=== PATIENT | female | born 1940 | race Caucasian/White ===

== ENCOUNTER 2017-03-11 13:16 | Emergency (ER) | payer OTHER, BC ==
[~2017-03-11] VITALS: Ht 147.3 cm; Wt 73.1 kg
[~2017-03-11 13:16] MED LIST: ATENOLOL25 M1 PO; CLONAZEPAM1 M2 PO; DILANTIN PO; DILANTIN100 M1 PO; ESIDRIX PO; IMDUR120 MG PO; ISOSORBIDE DINIT5 MG PO; LYRICA150 MG PO; PROZAC20 M1 PO; VASOTEC2.5 M1 PO; ZANAFLEX CAPSULE2 MG PO
[2017-03-11 13:32] VITALS: BP 114/67
--- NOTE | 2017-03-11 14:20 | NUR ---
PT AMBULATED TO ER BED #8.
--- NOTE | 2017-03-11 14:29 | NUR ---
76/F PRESENT TO ER C/O RIGHT SIDED HEADACHE WITH MILD NAUSEA X LAST NIGHT DENIES DIZZINESS AT THIS TIME. PAIN 9/10 ACHING RADIATING TO WHOLE HEAD. 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 AAO x4, PERRLA, BREATHING EVEN AND UNLABORED. ERMD NOTIFIED OF PATIENT STATUS.
--- NOTE | 2017-03-11 14:43 | NUR ---
Patient being evaluated by physician at bedside.
[2017-03-11] MEDS ORDERED: METOCLOPRAMIDE 10 MG TAB PO ONE (14:45)
[2017-03-11] MEDS ORDERED: ONDANSETRON 4 MG ODT PO ONE (14:45)
[2017-03-11] MEDS ORDERED: IBUPROFEN 800 MG TAB PO ONE (14:45)
[2017-03-11] MEDS ORDERED: KETOROLAC 60 MG/2 ML VIAL IM ONE (15:20)
--- NOTE | 2017-03-11 15:59 | NUR ---
Patient discharged with v/s stable. Written and verbal after care instructions given and explained. Patient alert, oriented and verbalized understanding of instructions. Ambulatory with steady gait. All questions addressed prior to discharge. ID band removed. Patient advised to follow up with PMD. Rx of reglan 10mg tablet given. Patient educated on indication of medication including possible reaction and side effects. Opportunity to ask questions provided and answered.
[2017-03-11 16:00] VITALS: BP 118/68
== END 2017-03-11 15:59 | disposition home or self-care (01) ==
LOC: MED 13:16
DX: G43.909 Migraine, unspecified, not intractable, without status migrainosus (principal); I25.2 Old myocardial infarction; Z86.73 Personal history of transient ischemic attack (TIA), and cerebral infarction without residual deficits; I10 Essential (primary) hypertension; Z91.018 Allergy to other foods
CPT/HCPCS: 81001; 93005; 96372; 99285; J1885; J8597; S0119

== ENCOUNTER 2018-06-06 11:12 | Emergency (ER) | payer OTHER, BC ==
[~2018-06-06] VITALS: Ht 149.9 cm; Wt 59.0 kg
[~2018-06-06 11:12] MED LIST changes: -ATENOLOL25 M1 PO; -CLONAZEPAM1 M2 PO; -DILANTIN PO; -DILANTIN100 M1 PO; -ESIDRIX PO; -IMDUR120 MG PO; +ISOS120T PO; -ISOSORBIDE DINIT5 MG PO; -LYRICA150 MG PO; +PHEN100C4 PO; -PROZAC20 M1 PO; -VASOTEC2.5 M1 PO; -ZANAFLEX CAPSULE2 MG PO
--- NOTE | 2018-06-06 11:28 | NUR ---
PT AMBULATES TO BED 7
[2018-06-06 11:32] VITALS: BP 110/66
--- NOTE | 2018-06-06 11:42 | NUR ---
C/O LEFT ARM PAIN X YESTERDAY HIT ARM AGAINST WALKER--PT STATES IS CONCERNED OF INJURY 2 2YR OLD FX WITH HARDWARE REPAIR---+2 RADIAL PULSE <3 SEC CAP REFILL NO DISCOLORATION OR SWELLING NOTED . DENIES N/V/D; SKIN IS PINK/WARM/DRY; AAOX4 ; LUNGS CLEAR BL; HR EVEN AND REGULAR; PT DENIES ANY FEVER, CP, SOB, OR COUGH AT THIS TIME; PATIENT STATES PAIN OF 8/10 AT THIS TIME; VSS; PATIENT POSITIONED FOR COMFORT; HOB ELEVATED; BEDRAILS UP X2; BED DOWN. ER MD MADE AWARE OF PT STATUS.
--- NOTE | 2018-06-06 11:52 | NUR ---
XRAY AT BEDSIDE
[2018-06-06] MEDS ORDERED: KETOROLAC 30 MG/ML VIAL IM ONE (12:15)
[2018-06-06] MEDS ORDERED: MORPHINE SULFATE 2 MG/ML SYR IM ONE (12:15)
[2018-06-06 14:39] VITALS: BP 115/65
--- NOTE | 2018-06-06 14:41 | NUR ---
Patient discharged with v/s stable. Written and verbal after care instructions given and explained. Patient alert, oriented and verbalized understanding of instructions. Ambulatory with steady gait. All questions addressed prior to discharge. ID band removed. Patient advised to follow up with PMD. Rx of TRAMADOL given. Patient educated on indication of medication including possible reaction and side effects. Opportunity to ask questions provided and answered. PT WAITING FOR RIDER AT THIS MOMENT.
--- NOTE | 2018-06-06 15:00 | NUR ---
PT'S RIDER IS HERE. PT LEFT WITH RIDER ( JUAN ANTONIO) IN STABLE STAUS.
== END 2018-06-06 14:41 | disposition home or self-care (01) ==
LOC: MED 11:12
DX: S52.125A Nondisplaced fracture of head of left radius, initial encounter for closed fracture (principal); I10 Essential (primary) hypertension; Z86.73 Personal history of transient ischemic attack (TIA), and cerebral infarction without residual deficits; Z88.8 Allergy status to other drugs, medicaments and biological substances; W18.39XA Other fall on same level, initial encounter; Y93.89 Activity, other specified; Y92.89 Other specified places as the place of occurrence of the external cause; Y99.8 Other external cause status
CPT/HCPCS: 73060; 73090; 73110; 96372; 99284; J1885; J2270; Q0092

== ENCOUNTER 2018-07-18 10:31 | Inpatient (IN) | payer OTHER, BC ==
[~2018-07-18] VITALS: Ht 147.3 cm; Wt 71.7 kg
[2018-07-18 10:36] VITALS: BP 172/89
[2018-07-18] MEDS ORDERED: NACL 0.9% 500 ML IV SCH (10:43)
[2018-07-18] MEDS ORDERED: ONDANSETRON 4 MG/2 ML VIAL IVP ONE (10:45)
--- NOTE | 2018-07-18 10:45 | NUR ---
PT. CAME INTO THE ED DUE TO N/V/D X 5 DAYS. PT. STATES I HAVE BEEN HAVING VOMITING AND HAVING DIARRHEA FOR 5 DAYS AND I FEEL WEAK SO I DECIDED TO COME IN". 03/12 ABD PAIN THAT IS DULL NON RADIATING IN EPIGASTRIC AREA. PT. DENIES ANY BLOOD OR DARK COLOR STOOL, DENIES ANY BLOOD IN EMESIS. DENIES FEVER AND CHILLS. PT. AWAKE AND ALERT, STEADY GAIT UPON AMBULATION. ABD SOFT AND ROUND AND AND NON TENDER UPON PALPATION. ER MD MADE AWARE. SAFETY PRECAUTIONS IMPLEMENTED. WILL CONTINUE TO MONITOR. VSS.
--- NOTE | 2018-07-18 11:17 | NUR ---
PT UNABLE TO PROVIDE URINE SAMPLE AT THIS TIME. ER NOTIFIED. WILL CONTINUE TO MONITOR.
--- NOTE | 2018-07-18 11:20 | NUR ---
XRAY AT THE BEDSIDE.
[2018-07-18 11:22] LABS: BASOPHILS % (AUTO) 0.3 % (0.0-2.0); EOSINOPHILS % (AUTO) 0.1 % (0.0-4.0); HEMATOCRIT 38.7 % (36-48); HEMOGLOBIN 12.9 g/dL (12.0-16.0); LYMPHOCYTES # (AUTO) 1.1 K/uL (2.5-16.5); LYMPHOCYTES % (AUTO) 13.5 % (20.5-51.1); MEAN CORPUSCULAR HEMOGLOBIN 31 pg (27-31); MEAN CORPUSCULAR HGB CONC 33 g/dL (33-37); MEAN CORPUSCULAR VOLUME 91.4 fL (80-94); MONOCYTES # (AUTO) 0.6 K/uL (0.8-1.0); MONOCYTES % (AUTO) 7.5 % (1.7-9.3); NEUTROPHILS # (AUTO) 6.5 K/uL (1.8-7.7); NEUTROPHILS % (AUTO) 78.6 % (42.2-75.2); PLATELET COUNT (AUTO) 268 K/uL (140-450); RED BLOOD CELL COUNT(AUTO) 4.23 MIL/uL (4.20-5.40); RED CELL DISTRIBUTION WIDTH 12.9 % (11.6-13.7); WHITE BLOOD COUNT (AUTO) 8.3 K/uL (4.8-10.8)
[2018-07-18 11:43] LABS: PROTHROMBIN TIME 11.7 secs (10.8-13.4)
[2018-07-18 11:55] LABS: ANION GAP 20.5 (8-16); CARBON DIOXIDE 19.8 mmol/L (21-32); CHLORIDE 103 mmol/L (98-107); GLUCOSE 87 mg/dL (74-106); POTASSIUM 3.3 mmol/L (3.5-5.1); SODIUM SERUM 140 mmol/L (136-145)
[2018-07-18 11:56] LABS: UREA NITROGEN, BLOOD 18 mg/dL (7-18)
--- NOTE | 2018-07-18 12:14 | NUR ---
PT. RESTING COMFORTABLY IN BED, RR EVEN AND UNLABORED. VSS. WILL CONTINUE TO MONITOR.
[2018-07-18] MEDS ORDERED: ASPIRIN 81 MG TAB.CHEW PO ONE (12:15)
[2018-07-18] MEDS ORDERED: ONDANSETRON 4 MG/2 ML VIAL IM/IVP PRN (12:25)
[2018-07-18] MEDS ORDERED: DOCUSATE SODIUM 100 MG GELCAP PO PRN (12:25)
[2018-07-18] MEDS ORDERED: ZOLPIDEM 5 MG TAB PO PRN (12:25)
[2018-07-18] MEDS ORDERED: MORPHINE SULFATE 2 MG/ML SYR IVP PRN (12:25)
[2018-07-18] MEDS ORDERED: ACETAMINOPHEN 325 MG TAB PO PRN (12:25)
[2018-07-18] MEDS ORDERED: LORazepam 2 MG/ML VIAL IM/IVP PRN (12:25)
[2018-07-18] MEDS ORDERED: KETOROLAC 30 MG/ML VIAL IVP ONE (12:30)
[2018-07-18 12:40] LABS: ALBUMIN 3.6 g/dL (3.4-5.0); ASPARTATE AMINOTRANSFERASE 11 U/L (15-37); TOTAL BILIRUBIN 0.7 mg/dL (0.0-1.0)
[2018-07-18 13:10] VITALS: BP 176/71
--- NOTE | 2018-07-18 13:10 | NUR ---
Patient will be admitted to care of DR. REED . Admited to TELE . Will go to room 107B. Belongings list completed. Report to ANGEL KIRBY AND ANGEL FELIPE .
--- NOTE | 2018-07-18 13:10 | NUR ---
PATIENT ARRIVED ON MST UNIT FROM ER. ABLE TO AMBULATE WITH ASSISTANCE FROM ER BED TO MST BED. NO DISTRESS NOTED. DENIES ANY PAIN AT THIS TIME. AAOX4, CALM, COOPERATIVE, SKIN COLOR APPROPRIATE TO ETHNICITY, WARM TO TOUCH. SKIN INTACT. RESPIRATIONS EVEN, UNLABORED, ON ROOM AIR. IV SITE INTACT, PATENT. ABDOMEN SOFT, NON-DISTENDED. ORIENTED PATIENT TO ROOM AND CALL LIGHT WITHIN REACH. SAFETY MEASURES IN PLACE, FALL PREVENTIONS IN PLACE. WILL CONTINUE TO MONITOR.
[2018-07-18 13:19] LABS: MAGNESIUM 1.6 mg/dL (1.8-2.4); PHOSPHORUS 2.4 mg/dL (2.5-4.9); THYROID STIMULATING HORMONE 0.06 uIU/mL (0.34-3.74)
[2018-07-18 13:26] LABS: APPEARANCE,URINE SLIGHTLY HAZY (CLEAR); BILIRUBIN,URINE 2+ (NEGATIVE); BLOOD, URINE 0 (NEGATIVE); COLOR,URINE YELLOW (YELLOW); UGLUCOSE 0 (NEGATIVE)
[2018-07-18 13:27] LABS: LEUKOCYTE ESTERASE ,URINE NEGATIVE (NEGATIVE); NITRITE, URINE NEGATIVE (NEGATIVE)
[2018-07-18 13:28] LABS: RBC,URINE NONE SEEN /HPF (0-5)
[2018-07-18] MEDS ORDERED: VAS10 PO (13:51)
[2018-07-18] MEDS ORDERED: [UNRECOGNIZED DRUG - CODE] PO (13:51)
[2018-07-18] MEDS ORDERED: HYDR25TA32 PO (13:51)
[2018-07-18] MEDS ORDERED: ATEN25TA7 PO (13:51)
[2018-07-18] MEDS ORDERED: SERT50TA PO (13:51)
[2018-07-18] MEDS ORDERED: NITROGLYCERIN 0.4 MG TAB SL PRN (13:55)
[2018-07-18] MEDS ORDERED: HYDROCHLOROTHIAZIDE 25 MG TAB PO SCH (14:00)
[2018-07-18] MEDS ORDERED: ENALAPRIL 10 MG TAB PO SCH (14:00)
[2018-07-18] MEDS ORDERED: SERTRALINE 50 MG TAB PO SCH (14:00)
[2018-07-18] MEDS ORDERED: MAG SULF 2000 MG/WATER PREMIX 50 ML IV ONE (14:15)
[2018-07-18] MEDS: DEXT 5% /NACL 0.9% 1,000 ML IV SCH (15:05)
[2018-07-18] MEDS: MAGNESIUM SULFATE 1GM in DEXTROSE 5% 100 ML PREMIX IV SCH ×2 (15:07→17:00)
--- NOTE | 2018-07-18 15:30 | NUR ---
PATIENT SITTING IN BED COMFORTABLY. NO DISTRESS NOTED. DENIES ANY PAIN. SCHEDULED MEDICATIONS DUE GIVEN. WILL CONTINUE TO MONITOR.
[2018-07-18 16:00] VITALS: BP 141/67
[2018-07-18] MEDS: SODIUM PHOS / POTASSIUM PHOS 1 PKT PDR PO SCH (17:00)
[2018-07-18] MEDS: HYDROcodone/APAP 5/325 MG 1 TAB TAB PO PRN ×2 (17:01→23:26)
--- NOTE | 2018-07-18 17:03 | NUR ---
PATIENT LYING DOWN IN BED WITH COMPLAINS OF GENERALIZED PAIN, NORCO GIVEN PER ORDERS. OTHER SCHEDULED MEDICATIONS DUE GIVEN. SAFETY MEASURES IN PLACE, CALL LIGHT WITHIN REACH. WILL CONTINUE TO MONITOR.
[2018-07-18] MEDS ORDERED: POTASSIUM CHLORIDE 40 MEQ, LIDOCAINE MPF 1% - 5 mL VIAL 25 MG in NACL 0.9% 250 ML IV SCH (18:00)
--- NOTE | 2018-07-18 19:25 | NUR ---
GAVE REPORT TO WATER REGULATOR AND VALVE REPAIRER NURSE FOR CONTINUITY OF CARE. PATIENT IN STABLE CONDITION.
--- NOTE | 2018-07-18 19:26 | NUR ---
RECEIVED BEDSIDE REPORT FROM DAY SHIFT NURSE MIRTA RN, PT STABLE, NO DISTRESS NOTED, IV TO R AC 22G PATENT, INTACT, INFUSING POTASSIUM AT THIS MOMENT, PT TOLERATED WELL, INFUSING WELL, PT ON ROOM AIR, NO SOB, DENIES ANY PAIN AT THIS MOMENT, INITIAL ASSESSMENT DONE, ALL SAFETY PRECAUTION MET, CALL LIGHT WITHIN REACH, WILL CONTINUE TO MONITOR.
[2018-07-18 20:00] VITALS: BP 145/65
[2018-07-18] MEDS: ATENOLOL 25 MG TAB PO SCH (21:22)
[2018-07-18] MEDS: ATORVASTATIN 20 MG TAB PO SCH (21:22)
--- NOTE | 2018-07-18 21:26 | NUR ---
DUE MEDICATION ADMINISTERED PT TOLERATED WELL, NO DISTRESS NOTED, CALL LIGHT WITHIN REACH, WILL CONTINUE TO MONITOR.
[2018-07-18] MEDS ORDERED: INFLUENZA VIRUS VACCINE QUAD 0.5 ML SYR IMVAC PRN (22:30)
[2018-07-18 23:26] VITALS: BP 158/69
--- NOTE | 2018-07-18 23:26 | NUR ---
CHECKED ON PT, PT STATED HAVING HEADACHE 6/10, PAIN MEDICATION NORCO ADMINISTERED, PT TOLERATED WELL, NO DISTRESS NOTED, V/S TAKEN, CALL LIGHT WITHIN REACH, WILL CONTINUE TO MONITOR.
[2018-07-19] MEDS: DEXT 5% /NACL 0.9% 1,000 ML IV SCH (02:42)
[2018-07-19 03:44] VITALS: BP 157/61
[2018-07-19] MEDS: HYDROcodone/APAP 5/325 MG 1 TAB TAB PO PRN ×2 (03:44→17:15)
--- NOTE | 2018-07-19 03:44 | NUR ---
PT AMBULATED TO BATHROOM AND BACK TO BED, TOLERATED WELL, PT C/O HEADACHE 03/12, PAIN MEDICATION ORDERED GIVEN, PT TOLERATED WELL, NO DISTRESS NOTED, CALL LIGHT WITHIN REACH, WILL CONTINUE TO MONITOR.
[2018-07-19 03:52] LABS: ANION GAP 9.1 (8-16); CARBON DIOXIDE 23.4 mmol/L (21-32); CHLORIDE 109 mmol/L (98-107); CREATININE 0.9 mg/dL (0.6-1.3); GLUCOSE 120 mg/dL (74-106); POTASSIUM 3.5 mmol/L (3.5-5.1); SODIUM SERUM 138 mmol/L (136-145); UREA NITROGEN, BLOOD 17 mg/dL (7-18)
[2018-07-19 03:56] LABS: MAGNESIUM 2.1 mg/dL (1.8-2.4); PHOSPHORUS 2.3 mg/dL (2.5-4.9)
[2018-07-19 03:59] LABS: CHOL/HDL RATIO 3.3 (1-4.5)
[2018-07-19 06:11] LABS: HEMATOCRIT 37.3 % (36-48); HEMOGLOBIN 12.2 g/dL (12.0-16.0); MEAN CORPUSCULAR HEMOGLOBIN 30 pg (27-31); MEAN CORPUSCULAR HGB CONC 33 g/dL (33-37); MEAN CORPUSCULAR VOLUME 92.4 fL (80-94); RED BLOOD CELL COUNT(AUTO) 4.04 MIL/uL (4.20-5.40); RED CELL DISTRIBUTION WIDTH 12.3 % (11.6-13.7); WHITE BLOOD COUNT (AUTO) 7.9 K/uL (4.8-10.8)
[2018-07-19 06:12] LABS: BASOPHILS # (AUTO) 0.1 K/uL (0.00-0.22); BASOPHILS % (AUTO) 1.4 % (0.0-2.0); EOSINOPHILS # (AUTO) 0.1 K/uL (0-0.4); EOSINOPHILS % (AUTO) 0.9 % (0.0-4.0); LYMPHOCYTES # (AUTO) 1.7 K/uL (2.5-16.5); MONOCYTES # (AUTO) 0.8 K/uL (0.8-1.0); MONOCYTES % (AUTO) 10.3 % (1.7-9.3); NEUTROPHILS # (AUTO) 5.2 K/uL (1.8-7.7); NEUTROPHILS % (AUTO) 65.4 % (42.2-75.2); PLATELET COUNT (AUTO) 315 K/uL (140-450)
[2018-07-19 07:15] LABS: T4 (THYROXINE) 8.3 ug/dL (4.5-12.0)
--- NOTE | 2018-07-19 07:32 | NUR ---
ENDORSED PT TO DAY SHIFT NURSE MIRTA RN, PT STABLE, NO DISTRESS NOTED, CALL LIGHT WITHIN REACH.
--- NOTE | 2018-07-19 07:33 | NUR ---
RECEIVED REPORT FROM ROTARY VENEER MACHINE OPERATOR NURSE. PT IN BED EATING BREAKFAST. RESPIRATIONS EVEN AND UNLABORED. NO DISTRESS NOTED. IV SITE INTACT, PATENT RIGHT AC. SKIN INTACT. REVIEWED CARE PLAN PT VERBALIZED UNDERSTANDING OF CARE PLAN. SAFETY MEASURES IN PLACE. CALL LIGHT AT BEDSIDE. WILL CONTINUE TO MONITOR.
[2018-07-19 08:00] VITALS: BP 161/57
--- NOTE | 2018-07-19 08:30 | NUR ---
PATIENT HAS BEEN SCREENED AND CATEGORIZED HIGH NUTRITION RISK. PATIENT WILL BE SEEN WITHIN 1-2 DAYS OF ADMISSION. 07/19/18 07/20/[address]
[2018-07-19] MEDS ORDERED: ENALAPRIL 10 MG TAB PO SCH (09:00)
[2018-07-19] MEDS ORDERED: SODIUM PHOS / POTASSIUM PHOS 1 PKT PDR PO SCH (09:00)
--- NOTE | 2018-07-19 09:00 | NUR ---
STOOL SAMPLES COLLECTED. WILL CONTINUE TO MONITOR.
[2018-07-19] MEDS: HYDROCHLOROTHIAZIDE 25 MG TAB PO SCH (09:19)
[2018-07-19] MEDS: ASPIRIN 81 MG TAB.CHEW PO SCH (09:20)
[2018-07-19] MEDS: SODIUM PHOS / POTASSIUM PHOS 1 PKT PDR PO SCH ×2 (09:20→14:08)
[2018-07-19] MEDS: SERTRALINE 50 MG TAB PO SCH (09:20)
[2018-07-19] MEDS: ENALAPRIL 10 MG TAB PO SCH (09:21)
[2018-07-19] MEDS: NACL 0.9% 1,000 ML IV SCH (09:27)
--- NOTE | 2018-07-19 09:45 | NUR ---
PATIENT SITTING IN BED COMFORTABLY. NO DISTRESS NOTED. DENIES ANY PAIN. SCHEDULED MEDICATION DUE GIVEN. SAFETY MEASURES IN PLACE, CALL LIGHT WITHIN REACH. WILL CONTINUE TO MONITOR.
[2018-07-19 12:00] VITALS: BP 139/58
--- NOTE | 2018-07-19 12:00 | NUR ---
PATIENT SITTING IN BED COMFORTABLY. NO DISTRESS NOTED. DENIES ANY PAIN. CONDITION UNCHANGED. WILL CONTINUE TO MONITOR.
--- NOTE | 2018-07-19 12:39 | NUR ---
ECHO DONE Addendum: 07/19/18 at 1509 by Jazzy Robin RT ECHO DONE AT [id number] NOT [id number]
--- NOTE | 2018-07-19 14:17 | NUR ---
07/19/18 RD INITIAL ASSESSMENT COMPLETED PLEASE REFER TO NUTRITION ASSESSMENT UNDER CARE ACTIVITY FOR ESTIMATED NUTRITIONAL NEEDS. 1. CONTINUE CARDIAC DIET TOLERATED 2. RD TO FOLLOW-UP WITH CARDIAC DIET EDUCATION 3. RD TO FOLLOW-UP 3-5 DAYS, MODERATE RISK JENI GARNER, RD
--- NOTE | 2018-07-19 14:30 | NUR ---
PATIENT LYING DOWN IN BED SLEEPING, AROUSABLE BY VOICE. NO DISTRESS NOTED DENIES ANY PAIN. CONDITION UNCHANGED. WILL CONTINUE TO MONITOR.
[2018-07-19 16:00] VITALS: BP 155/62
--- NOTE | 2018-07-19 18:00 | NUR ---
PATIENT SITTING IN BED WITH DINNER TRAY IN FRONT. NO DISTRESS NOTED. CONDITION UNCHANGED. WILL CONTINUE TO MONITOR.
--- NOTE | 2018-07-19 19:26 | NUR ---
REPORT GIVEN TO NIGHT NURSE. PT STABLE IN BED. CALL LIGHT AT BEDSIDE. SAFETY MEASURES IN PLACE.
--- NOTE | 2018-07-19 19:27 | NUR ---
RECEIVED BEDSIDE REPORT FROM DAY SHIFT NURSE MIRTA RN, PT STABLE, NO DISTRESS NOTED, IV TO R AC 22G PATENT, INTACT, INFUSING NS @ 50ML/HR, INFUSING WELL, PT ON ROOM AIR , NO SOB, INITIAL ASSESSMENT DONE ALL SAFETY PRECAUTION MET, CALL LIGHT WITHIN REACH, WILL CONTINUE TO MONITOR.
[2018-07-19 20:00] VITALS: BP 133/52
[2018-07-19] MEDS: ATORVASTATIN 20 MG TAB PO SCH (20:56)
[2018-07-19] MEDS: ATENOLOL 25 MG TAB PO SCH (20:57)
--- NOTE | 2018-07-19 21:01 | NUR ---
DUE MEDICATION ADMINISTERED, PT TOLERATED WELL, NO DISTRESS NOTED, CALL LIGHT WITHIN REACH, WILL CONTINUE TO MONITOR.
[2018-07-20] VITALS: BP 158/72
--- NOTE | 2018-07-20 00:01 | NUR ---
PT SLEEPING, CHECKED ON PT, NO DISTRESS NOTED, V/S TAKEN, WNL, PT STABLE, CALL LIGHT WITHIN REACH, WILL CONTINUE TO MONITOR.
[2018-07-20 04:00] VITALS: BP 156/75
[2018-07-20] MEDS: NACL 0.9% 1,000 ML IV SCH (04:00)
--- NOTE | 2018-07-20 04:03 | NUR ---
CHECKED ON PT, PT SLEEPING, NO DISTRESS NOTED, V/S WITHIN PT BASELINE, CALL LIGHT WITHIN REACH, WILL CONTINUE TO MONITOR.
--- NOTE | 2018-07-20 06:06 | NUR ---
PT RESTING, NO DISTRESS NOTED, CALL LIGHT WITHIN REACH, WILL CONTINUE TO MONITOR.
[2018-07-20] MEDS: HYDROcodone/APAP 5/325 MG 1 TAB TAB PO PRN (06:42)
--- NOTE | 2018-07-20 07:15 | NUR ---
PT REPORT RECEIVED FROM SENIOR PROJECT ENGINEER NURSE AT BEDSIDE. PT IS ALERT AND AWAKE. IV SITE NOTED ON R AC, 22 GAUGE, INFUSING NS AT 50 ML/HR. PT IS ON ROOM AIR. SKIN INTACT. PT IS STABLE, NO S/S OF DISTRESS NOTED AT THIS TIME. CALL LIGHT WITHIN REACH, BED IN LOW POSITION. WILL CONTINUE TO MONITOR.
--- NOTE | 2018-07-20 07:18 | NUR ---
ENDORSED PT TO DAY SHIFT NURSE SYMONE RN, PT STABLE, NO DISTRESS NOTED, CALL LIGHT WITHIN REACH.
[2018-07-20 07:26] LABS: BASOPHILS % (AUTO) 0.5 % (0.0-2.0); EOSINOPHILS # (AUTO) 0.1 K/uL (0-0.4); EOSINOPHILS % (AUTO) 1.1 % (0.0-4.0); HEMATOCRIT 35.8 % (36-48); HEMOGLOBIN 11.9 g/dL (12.0-16.0); LYMPHOCYTES # (AUTO) 1.5 K/uL (2.5-16.5); LYMPHOCYTES % (AUTO) 24.7 % (20.5-51.1); MEAN CORPUSCULAR HEMOGLOBIN 31 pg (27-31); MEAN CORPUSCULAR HGB CONC 33 g/dL (33-37); MEAN CORPUSCULAR VOLUME 91.4 fL (80-94); MONOCYTES # (AUTO) 0.6 K/uL (0.8-1.0); MONOCYTES % (AUTO) 10.2 % (1.7-9.3); NEUTROPHILS # (AUTO) 3.7 K/uL (1.8-7.7); NEUTROPHILS % (AUTO) 63.5 % (42.2-75.2); PLATELET COUNT (AUTO) 221 K/uL (140-450); RED BLOOD CELL COUNT(AUTO) 3.92 MIL/uL (4.20-5.40); RED CELL DISTRIBUTION WIDTH 13.2 % (11.6-13.7); WHITE BLOOD COUNT (AUTO) 5.9 K/uL (4.8-10.8)
[2018-07-20 07:43] LABS: ANION GAP 10.3 (8-16); CHLORIDE 108 mmol/L (98-107); CREATININE 0.7 mg/dL (0.6-1.3); GLUCOSE 94 mg/dL (74-106); POTASSIUM 3.3 mmol/L (3.5-5.1); SODIUM SERUM 141 mmol/L (136-145); UREA NITROGEN, BLOOD 9 mg/dL (7-18)
[2018-07-20 08:00] VITALS: BP 191/68
[2018-07-20] MEDS ORDERED: ATOR20TA40 PO (08:09)
[2018-07-20] MEDS ORDERED: HYDR25TA32 PO (08:09)
[2018-07-20] MEDS ORDERED: SERT50TA PO (08:09)
[2018-07-20] MEDS ORDERED: ATEN25TA7 PO (08:09)
[2018-07-20] MEDS ORDERED: VAS10 PO (08:09)
[2018-07-20] MEDS ORDERED: ASPI81CT95 PO (08:09)
[2018-07-20] MEDS: HYDROCHLOROTHIAZIDE 25 MG TAB PO SCH (08:16)
[2018-07-20] MEDS: SERTRALINE 50 MG TAB PO SCH (08:16)
[2018-07-20] MEDS: ASPIRIN 81 MG TAB.CHEW PO SCH (08:16)
[2018-07-20] MEDS: ENALAPRIL 10 MG TAB PO SCH (08:17)
[2018-07-20 08:23] LABS: MAGNESIUM 1.5 mg/dL (1.8-2.4); PHOSPHORUS 2.2 mg/dL (2.5-4.9)
--- NOTE | 2018-07-20 08:31 | NUR ---
NOTIFIED OF PT'S HIGH BLOOD PRESSURE. BP MEDICINE ADMINISTERED.
--- NOTE | 2018-07-20 10:00 | NUR ---
PT'S BP ASSESSED BY DR ORTA
[2018-07-20] MEDS ORDERED: POTA10TE30 PO (10:25)
[2018-07-20] MEDS ORDERED: SODIUM PHOS / POTASSIUM PHOS 1 PKT PDR PO SCH (10:31)
[2018-07-20] MEDS ORDERED: MAG SULF 2000 MG/WATER PREMIX 50 ML IV SCH (10:31)
[2018-07-20] MEDS ORDERED: POTASSIUM CHLORIDE 10 MEQ TABER PO SCH (10:31)
[2018-07-20 10:54] VITALS: BP 161/65
--- NOTE | 2018-07-20 10:55 | NUR ---
BP RECHECKED, 161/65 AT THIS TIME.
[2018-07-20] MEDS ORDERED: NIFE30TE5 PO (11:03)
[2018-07-20] MEDS ORDERED: NIFEdipine 30 MG TABER PO SCH (11:30)
[2018-07-20 12:00] VITALS: BP 151/52
--- NOTE | 2018-07-20 12:23 | NUR ---
E/M Engineer Note: I faxed inquiry to [facility], fax number , phone number . Per Mary from [facility], they will send a nurse to patient's home either tomorrow 07/21/18 or Tuesday07/22/18.
--- NOTE | 2018-07-20 14:20 | NUR ---
PT HAS DISCHARGED IN STABLE CONDITION. PT SHOWING NO S/S OF DISTRESS. IV SITE DC'D, IV CATHETER INTACT. WRIST BANDS REMOVED. PT LEFT WITH ALL OF HER BELONGINGS. DISCHARGE PAPERWORK OBTAINED. PT EDUCATED ON DISCHARGE ORDERS AND GIVEN DISCHARGE PRESCRIPTIONS. PT WAS PICKED UP BY HER FRIEND.
[2018-07-21] MEDS ORDERED: NIFEdipine 30 MG TABER PO SCH (09:00)
== END 2018-07-20 14:20 | disposition home health service (06) | DRG 392 ==
LOC: MED 10:31 → MTU 12:28
PROVIDERS: ADMIT General Practice; ATTEND General Practice
PROC: 3E0234Z Introduction of Serum, Toxoid and Vaccine into Muscle, Percutaneous Approach (ICD-10-PCS; principal; 2018-07-18)
DX: A08.4 Viral intestinal infection, unspecified (principal); I69.354 Hemiplegia and hemiparesis following cerebral infarction affecting left non-dominant side; E87.2 Acidosis; M94.0 Chondrocostal junction syndrome [Tietze]; I10 Essential (primary) hypertension; I25.10 Atherosclerotic heart disease of native coronary artery without angina pectoris; E87.6 Hypokalemia; E83.39 Other disorders of phosphorus metabolism; E83.42 Hypomagnesemia; E86.0 Dehydration; E66.9 Obesity, unspecified; N20.0 Calculus of kidney; Z23 Encounter for immunization; K76.0 Fatty (change of) liver, not elsewhere classified; G43.109 Migraine with aura, not intractable, without status migrainosus; N83.202 Unspecified ovarian cyst, left side; N83.201 Unspecified ovarian cyst, right side; E05.90 Thyrotoxicosis, unspecified without thyrotoxic crisis or storm; D64.9 Anemia, unspecified; F32.9 Major depressive disorder, single episode, unspecified; K57.30 Diverticulosis of large intestine without perforation or abscess without bleeding; I25.2 Old myocardial infarction; Z68.32 Body mass index [BMI] 32.0-32.9, adult; Z91.041 Radiographic dye allergy status; Z79.899 Other long term (current) drug therapy; Z98.49 Cataract extraction status, unspecified eye; Z83.3 Family history of diabetes mellitus; Z82.3 Family history of stroke; Z82.49 Family history of ischemic heart disease and other diseases of the circulatory system
CPT/HCPCS: 36415; 74022; 76705; 80048; 80053; 81001; 82150; 82272; 83036; 83605; 83690; 83735; 83880; 84100; 84134; 84436; 84443; 84479; 84484; 85025; 85610; 85730; 87040; 87045; 87070; 87081; 87086; 89055; 90658; 93005; 93925; 93970; 96361; 96374; 96375; 97116; 97530; 99285; J1644; J1885; J2001; J2405; J3475; J3480; J7030; J7042; Q0092

== ENCOUNTER 2019-02-27 15:09 | Emergency (ER) | payer OTHER, BC ==
[~2019-02-27] VITALS: Ht 157.5 cm; Wt 79.4 kg
[~2019-02-27 15:09] MED LIST changes: +ASPI81CT95 PO; +ATEN25TA7 PO; +ATOR20TA40 PO; +ENAL10TA99 PO; +HYDR25TA32 PO; -ISOS120T PO; +NIFE30TE5 PO; -PHEN100C4 PO; +POTA10TE30 PO; +SERT50TA PO; +[UNRECOGNIZED DRUG - CODE] PO
--- NOTE | 2019-02-27 15:11 | NUR ---
PATIENT BIBA TAKEN TO ER BED 7
[2019-02-27 15:19] VITALS: BP 128/67
--- NOTE | 2019-02-27 15:30 | NUR ---
BIBA W C/O L GROIN PAIN STARTING TODAY, RADIATING DOWN LLE, 02/09 SHARP & INTERMITTENET W/ MOVEMENT. PT DENIES RECENT INJURY/FALL/TRAUMA. PT REPORTS SHE CAN TYPICALLY AMBULATE WITH A WALKER, BUT HAS NOT BEEN ABLE TO TODAY BECAUSE OF THE PAIN. PEDAL PULSES +2, CAP REFIL <3 SECONDS, M/S FUNCTION INTACT. LIMITED ROM, PT IS GUARDING L LEG. NO OBVIOUS DEFORMITY, REDNESS, SWELLING NOTED TO L GROIN/LLE. PT IS ALERT & ANSWERING QUESTIONS SLOWLY BUT APPROPRIATELY. BED IN LOW POSITION, SIDE RAIL UP X1.
--- NOTE | 2019-02-27 15:32 | NUR ---
ERMD AT BEDSIDE
[2019-02-27] MEDS ORDERED: KETOROLAC 60 MG/2 ML VIAL IM ONE (15:35)
--- NOTE | 2019-02-27 15:38 | NUR ---
X RAY AT BEDSIDE
--- NOTE | 2019-02-27 17:05 | NUR ---
PT LEFT TO CT
[2019-02-27 17:07] LABS: BASOPHILS # (AUTO) 0.1 K/uL (0.00-0.22); EOSINOPHILS # (AUTO) 0.1 K/uL (0-0.4); EOSINOPHILS % (AUTO) 0.8 % (0.0-4.0); HEMATOCRIT 37.6 % (36-48); HEMOGLOBIN 12.6 g/dL (12.0-16.0); LYMPHOCYTES # (AUTO) 1.2 K/uL (2.5-16.5); LYMPHOCYTES % (AUTO) 18.4 % (20.5-51.1); MEAN CORPUSCULAR HEMOGLOBIN 31 pg (27-31); MEAN CORPUSCULAR HGB CONC 34 g/dL (33-37); MEAN CORPUSCULAR VOLUME 90.9 fL (80-94); MONOCYTES # (AUTO) 0.6 K/uL (0.8-1.0); MONOCYTES % (AUTO) 8.9 % (1.7-9.3); NEUTROPHILS # (AUTO) 4.8 K/uL (1.8-7.7); NEUTROPHILS % (AUTO) 70.9 % (42.2-75.2); PLATELET COUNT (AUTO) 226 K/uL (140-450); RED BLOOD CELL COUNT(AUTO) 4.13 MIL/uL (4.20-5.40); RED CELL DISTRIBUTION WIDTH 13.3 % (11.6-13.7); WHITE BLOOD COUNT (AUTO) 6.8 K/uL (4.8-10.8)
[2019-02-27 17:15] LABS: ANION GAP 11.2 (8-16); CARBON DIOXIDE 26.7 mmol/L (21-32); CHLORIDE 100 mmol/L (98-107); GLUCOSE 100 mg/dL (74-106); POTASSIUM 3.9 mmol/L (3.5-5.1); SODIUM SERUM 134 mmol/L (136-145); UREA NITROGEN, BLOOD 18 mg/dL (7-18)
--- NOTE | 2019-02-27 17:20 | NUR ---
PT RETURNED FROM CT
[2019-02-27 17:21] LABS: ALBUMIN 3.6 g/dL (3.4-5.0); ASPARTATE AMINOTRANSFERASE 12 U/L (15-37); TOTAL BILIRUBIN 0.3 mg/dL (0.0-1.0)
--- NOTE | 2019-02-27 19:00 | NUR ---
ALYSSA CALLED FOR PT PER HER REQUEST, SHE WILL WAIT IN THE LOBBY FOR THEM TO ARRIVE.
[2019-02-27 19:06] VITALS: BP 130/82
--- NOTE | 2019-02-27 19:06 | NUR ---
Patient discharged with v/s stable. Written and verbal after care instructions given and explained. Patient alert, oriented and verbalized understanding of instructions. Ambulatory with to car. All questions addressed prior to discharge. ID band removed. Patient advised to follow up with PMD. Rx of TRAMADOL given. Patient educated on indication of medication including possible reaction and side effects. Opportunity to ask questions provided and answered.
== END 2019-02-27 19:06 | disposition home or self-care (01) ==
LOC: MED 15:09
DX: S39.011A Strain of muscle, fascia and tendon of abdomen, initial encounter (principal); I10 Essential (primary) hypertension; Z86.73 Personal history of transient ischemic attack (TIA), and cerebral infarction without residual deficits; Z88.8 Allergy status to other drugs, medicaments and biological substances; Z79.899 Other long term (current) drug therapy; X58.XXXA Exposure to other specified factors, initial encounter; Y93.89 Activity, other specified; Y92.89 Other specified places as the place of occurrence of the external cause; Y99.8 Other external cause status
CPT/HCPCS: 36415; 72192; 73502; 80053; 85025; 96372; 99284; J1885; Q0092

== ENCOUNTER 2019-08-20 16:24 | Emergency (ER) | payer OTHER, BC ==
[~2019-08-20] VITALS: Ht 152.4 cm; Wt 77.1 kg
[2019-08-20 17:06] VITALS: BP 135/51
--- NOTE | 2019-08-20 17:22 | NUR ---
PT TAKEN TO BED 1 VIA W/C.
--- NOTE | 2019-08-20 17:30 | NUR ---
PT ARRIVED TO ED C/O LEFT NEE/LEG PAIN X 5 MONTHS. PT STATES THE PAIN COMES AND GOES. NO BOVIOUS DFORMITY NOTED ON EXTREM. PEDAL PULSES PRESENT BILATER. CMS INTACT. VSS. PT STATES SHE OCCASSALLY FALLS AT HOME. SAYS SHE FELL TODAT . NO OBIVOUS SIGNS OF HEAD INJURY. LIVE ALONE. PT STATES THE PAIN GETS WORSE WITH MOVEMENT. PT HAS SWELLING ON LEFT KNEE. ALLERGIES: IODINE PMH: NC,STROKE, HTN, BROKEN LEFT ARM AND LEFT ANKLE.
--- NOTE | 2019-08-20 18:14 | NUR ---
XR AT BEDSIDE.
[2019-08-20] MEDS: KETOROLAC 30 MG/ML VIAL IM ONE (18:42)
--- NOTE | 2019-08-20 19:20 | NUR ---
Pt report given to ANGEL LANCE. Transfer of care at this time.
--- NOTE | 2019-08-20 19:20 | NUR ---
RECEIVED REPORT FROM ANGEL EDUARDO. PT'S TAXI CAB IS WAITING OUTSIDE. PT WC ASSIST TO CAR.
[2019-08-20 19:25] VITALS: BP 118/64
== END 2019-08-20 19:22 | disposition home or self-care (01) ==
LOC: MED 16:24
DX: M17.12 Unilateral primary osteoarthritis, left knee (principal); I25.2 Old myocardial infarction; I10 Essential (primary) hypertension; Z86.73 Personal history of transient ischemic attack (TIA), and cerebral infarction without residual deficits; Z88.8 Allergy status to other drugs, medicaments and biological substances; Z79.899 Other long term (current) drug therapy; Z79.82 Long term (current) use of aspirin
CPT/HCPCS: 73562; 96372; 99283; J1885; Q0092

== ENCOUNTER 2021-11-10 12:31 | Emergency (ER) | payer OTHER, BC ==
[~2021-11-10] VITALS: Ht 152.4 cm; Wt 68.0 kg
[~2021-11-10 12:31] MED LIST changes: +POTA10TA70 PO; -POTA10TE30 PO
[2021-11-10 12:46] VITALS: BP 151/101
--- NOTE | 2021-11-10 12:56 | NUR ---
COVID JOVANNY SWAB DONE.
--- NOTE | 2021-11-10 12:56 | NUR ---
TENT 3
--- NOTE | 2021-11-10 13:07 | NUR ---
SEEN AT URGENT CARE TODAY FOR INSOMNIA. C/O INSOMNIA, 07/12 IRIZARRY, SORE THROAT, COUGH X 1 WEEK. PMH: STROKE
--- NOTE | 2021-11-10 13:40 | NUR ---
PT AMB WITH WALKER TO BED 12.
--- NOTE | 2021-11-10 13:46 | NUR ---
PT TAKEN TO CT VIA GUAYDE, ACCOMPANIED BY CASE REVIEWER.
--- NOTE | 2021-11-10 13:59 | NUR ---
PT RETURNED FROM CT
--- NOTE | 2021-11-10 14:57 | NUR ---
FLU SWAB COLLECTED AND HANDED TO DEB ODEN
--- NOTE | 2021-11-10 15:00 | NUR ---
LAB AT BEDSIDE
[2021-11-10 15:22] LABS: BASOPHILS # (AUTO) 0.1 K/uL (0.00-0.22); BASOPHILS % (AUTO) 0.9 % (0.0-2.0); EOSINOPHILS % (AUTO) 0.4 % (0.0-4.0); HEMATOCRIT 37.3 % (36-48); HEMOGLOBIN 12.9 g/dL (12.0-16.0); LYMPHOCYTES # (AUTO) 1.2 K/uL (2.5-16.5); LYMPHOCYTES % (AUTO) 18.1 % (20.5-51.1); MEAN CORPUSCULAR HEMOGLOBIN 31 pg (27-31); MEAN CORPUSCULAR HGB CONC 35 g/dL (33-37); MONOCYTES # (AUTO) 0.5 K/uL (0.8-1.0); MONOCYTES % (AUTO) 8.4 % (1.7-9.3); NEUTROPHILS # (AUTO) 4.7 K/uL (1.8-7.7); NEUTROPHILS % (AUTO) 72.2 % (42.2-75.2); PLATELET COUNT (AUTO) 270 K/uL (140-450); RED BLOOD CELL COUNT(AUTO) 4.19 MIL/uL (4.20-5.40); RED CELL DISTRIBUTION WIDTH 13.2 % (11.6-13.7); WHITE BLOOD COUNT (AUTO) 6.5 K/uL (4.8-10.8)
[2021-11-10 15:41] LABS: ALBUMIN 3.5 g/dL (3.4-5.0); ANION GAP 13.2 (8-16); ASPARTATE AMINOTRANSFERASE 14 U/L (15-37); CARBON DIOXIDE 26.2 mmol/L (21-32); CHLORIDE 104 mmol/L (98-107); CREATININE 0.8 mg/dL (0.6-1.3); GLUCOSE 107 mg/dL (74-106); POTASSIUM 3.4 mmol/L (3.5-5.1); SODIUM SERUM 140 mmol/L (136-145); TOTAL BILIRUBIN 0.3 mg/dL (0.0-1.0); UREA NITROGEN, BLOOD 21 mg/dL (7-18)
[2021-11-10 15:45] LABS: PROTHROMBIN TIME 10.6 secs (10.8-13.4)
[2021-11-10 15:50] LABS: BILIRUBIN,URINE 1+ (NEGATIVE); BLOOD, URINE NEGATIVE (NEGATIVE); LEUKOCYTE ESTERASE ,URINE NEGATIVE (NEGATIVE); NITRITE, URINE NEGATIVE (NEGATIVE); PH,URINE 5.5 (5.0-9.0); UGLUCOSE NEGATIVE (NEGATIVE)
[2021-11-10 16:06] LABS: APPEARANCE,URINE CLEAR (CLEAR); COLOR,URINE YELLOW (YELLOW)
[2021-11-10] MEDS ORDERED: MORPHINE SULFATE 4 MG/ML SYR IVP ONE (17:15)
--- NOTE | 2021-11-10 17:40 | NUR ---
PT AMBULATED TO RESTROOM, STEADY GAIT
[2021-11-10] MEDS ORDERED: ONDANSETRON 4 MG/2 ML VIAL IVP ONE (17:45)
[2021-11-10] MEDS ORDERED: ONDANSETRON 4 MG/2 ML VIAL ONE (17:46)
[2021-11-10] MEDS ORDERED: ACET-8386 PO (17:47)
[2021-11-10] MEDS ORDERED: IBUP-2213 PO (17:47)
[2021-11-10] MEDS ORDERED: ONDA8TAB87 PO (17:47)
[2021-11-10 18:07] VITALS: BP 128/79
--- NOTE | 2021-11-10 18:07 | NUR ---
Patient discharged with v/s stable. Written and verbal after care instructions given and explained. Patient alert, oriented and verbalized understanding of instructions. Ambulatory with steady gait. All questions addressed prior to discharge. ID band removed. Patient advised to follow up with PMD. Rx of ZOFRAN, HYDROCODONE-ACETAMINOPHEN, AND IBUPROFEN given. Patient educated on indication of medication including possible reaction and side effects. Opportunity to ask questions provided and answered.
[2021-11-13] MEDS ORDERED: ONDA8TAB87 PO (13:20)
== END 2021-11-10 18:07 | disposition home or self-care (01) ==
LOC: MED 12:31
DX: B34.9 Viral infection, unspecified (principal); Z20.822 Contact with and (suspected) exposure to COVID-19; I11.9 Hypertensive heart disease without heart failure; G43.909 Migraine, unspecified, not intractable, without status migrainosus; Z86.73 Personal history of transient ischemic attack (TIA), and cerebral infarction without residual deficits; Z88.8 Allergy status to other drugs, medicaments and biological substances
CPT/HCPCS: 36415; 70450; 71045; 80053; 81003; 83605; 83880; 84484; 85025; 85610; 85730; 87040; 87086; 87426; 87804; 93005; 96374; 96375; 99285; J2270; J2405; Q0092

== ENCOUNTER 2022-04-30 10:31 | Emergency (ER) | payer OTHER, BC ==
[~2022-04-30] VITALS: Ht 152.4 cm; Wt 70.3 kg
[~2022-04-30 10:31] MED LIST changes: +ACET-8386 PO; +IBUP-2213 PO; +ONDA8TAB87 PO; +[UNRECOGNIZED DRUG - CODE] PO; -[UNRECOGNIZED DRUG - CODE] PO
[2022-04-30] MEDS ORDERED: CLONIDINE HYDROCHLORIDE 0.1 MG TAB PO ONE (10:40)
[2022-04-30 10:41] VITALS: BP 202/68
--- NOTE | 2022-04-30 10:49 | NUR ---
PATIENT PRESENTS TO ED WITH DIZZINESS, HEADACHE, NAUSEA . PT STATES . DENIES N/V/D; SKIN IS PINK/WARM/DRY; AAOX4 WITH EVEN AND STEADY GAIT; LUNGS CLEAR BL; HR EVEN AND REGULAR; PT DENIES ANY FEVER, CP, SOB, OR COUGH AT THIS TIME; PATIENT STATES PAIN OF 10/10 AT THIS TIME; VSS; PATIENT POSITIONED FOR COMFORT; HOB ELEVATED; BEDRAILS UP X2; BED DOWN. ER MD MADE AWARE OF PT STATUS.
--- NOTE | 2022-04-30 10:58 | NUR ---
TO CT VIA [facility]
--- NOTE | 2022-04-30 11:02 | NUR ---
BACK FROM CT.
[2022-04-30 11:13] LABS: BASOPHILS # (AUTO) 0.1 K/uL (0.00-0.22); BASOPHILS % (AUTO) 1.2 % (0.0-2.0); EOSINOPHILS # (AUTO) 0.1 K/uL (0-0.4); EOSINOPHILS % (AUTO) 2.3 % (0.0-4.0); HEMATOCRIT 35.6 % (36-48); HEMOGLOBIN 12.1 g/dL (12.0-16.0); LYMPHOCYTES # (AUTO) 1.4 K/uL (2.5-16.5); LYMPHOCYTES % (AUTO) 31.5 % (20.5-51.1); MEAN CORPUSCULAR HEMOGLOBIN 31 pg (27-31); MEAN CORPUSCULAR HGB CONC 34 g/dL (33-37); MEAN CORPUSCULAR VOLUME 90.6 fL (80-94); MONOCYTES # (AUTO) 0.5 K/uL (0.8-1.0); MONOCYTES % (AUTO) 10.3 % (1.7-9.3); NEUTROPHILS # (AUTO) 2.5 K/uL (1.8-7.7); NEUTROPHILS % (AUTO) 54.7 % (42.2-75.2); PLATELET COUNT (AUTO) 222 K/uL (140-450); RED BLOOD CELL COUNT(AUTO) 3.93 MIL/uL (4.20-5.40); RED CELL DISTRIBUTION WIDTH 13.1 % (11.6-13.7); WHITE BLOOD COUNT (AUTO) 4.5 K/uL (4.8-10.8)
[2022-04-30 12:14] LABS: ALBUMIN 3.3 g/dL (3.4-5.0); ANION GAP 9.9 (8-16); ASPARTATE AMINOTRANSFERASE 11 U/L (15-37); CARBON DIOXIDE 27.8 mmol/L (21-32); CHLORIDE 108 mmol/L (98-107); CREATININE 0.7 mg/dL (0.6-1.3); GLUCOSE 94 mg/dL (74-106); POTASSIUM 3.7 mmol/L (3.5-5.1); SODIUM SERUM 142 mmol/L (136-145); TOTAL BILIRUBIN 0.2 mg/dL (0.0-1.0); UREA NITROGEN, BLOOD 16 mg/dL (7-18)
[2022-04-30] MEDS ORDERED: KETOROLAC 30 MG/ML VIAL IM ONE (12:40)
[2022-04-30] MEDS ORDERED: ACETAMINOPHEN EXTRA STRENGTH 500 MG TAB PO ONE (12:40)
[2022-04-30] MEDS ORDERED: ENAL10TA99 PO (12:48)
[2022-04-30] MEDS ORDERED: POTA10TA70 PO (12:48)
[2022-04-30] MEDS ORDERED: ATEN25TA7 PO (12:48)
[2022-04-30] MEDS ORDERED: HYDR25TA32 PO (12:48)
--- NOTE | 2022-04-30 13:02 | NUR ---
Patient discharged with v/s stable. Written and verbal after care instructions given and explained. Patient alert, oriented and verbalized understanding of instructions. Ambulatory with steady gait. All questions addressed prior to discharge. ID band removed. Patient advised to follow up with PMD. Rx of ATENOLOL, ENALAPRIL, HCTZ, POTASSIUM given. Patient educated on indication of medication including possible reaction and side effects. Opportunity to ask questions provided and answered.
[2022-04-30 13:03] VITALS: BP 133/65
[2022-04-30] MEDS ORDERED: ONDA-188 PO (13:05)
== END 2022-04-30 13:02 | disposition home or self-care (01) ==
LOC: MED 10:31
DX: I10 Essential (primary) hypertension (principal); R51.9 Headache, unspecified; I25.10 Atherosclerotic heart disease of native coronary artery without angina pectoris; Z91.040 Latex allergy status; Z86.73 Personal history of transient ischemic attack (TIA), and cerebral infarction without residual deficits
CPT/HCPCS: 36415; 70450; 80053; 81002; 84484; 85025; 93005; 96372; 99285; J1885

== ENCOUNTER 2023-04-17 18:30 | Emergency (ER) | payer OTHER, BC ==
[~2023-04-17] VITALS: Ht 152.4 cm; Wt 63.5 kg
[~2023-04-17 18:30] MED LIST changes: -ACET-8386 PO; +ACET-8905 PO; +ONDA-188 PO
--- NOTE | 2023-04-17 18:31 | NUR ---
[facility] - PATIENT TO ER BED 01
[2023-04-17 18:41] VITALS: BP 163/98; PULSE 86; RESP 20; TEMP 97.8; O2SAT 99
--- NOTE | 2023-04-17 19:01 | NUR ---
82YO F BIBA PRESENTS W/NAUSEA, VOMITING, URINARY FREQUENCY, CHILLS OFF AND ON SINCE April. PT STATES SHE FEELS CONFUSED AND NOT SURE WHAT DAY IT IS. 22G SALINE LOCK ON LT HAND ESTABLISHED ON FIELD. PT DENIES DIARRHEA, FEVER, IRIZARRY, ABD PAIN, COUGH, SOB, CP. PT SKIN DRY/INTACT, A/OX3. NAD NOTED, SAFETY MAINTAINED.
--- NOTE | 2023-04-17 19:21 | NUR ---
Pt report given to LO ORTIZ, ALL QUESTIONS ANSWERED. Transfer of care at this time.
--- NOTE | 2023-04-17 19:27 | NUR ---
PT WAS TAKEN TO RADIOLOGY
[2023-04-17] MEDS ORDERED: ONDANSETRON 4 MG/2 ML VIAL IVP ONE (19:30)
[2023-04-17] MEDS ORDERED: NACL 0.9% 1,000 ML IV ONE (19:30)
--- NOTE | 2023-04-17 20:04 | NUR ---
IV WAS INFILTRATED, PUT A NEW ONE ON THE RIGHT AC
--- NOTE | 2023-04-17 20:09 | NUR ---
PT WENT TO RESTROOM
--- NOTE | 2023-04-17 20:17 | NUR ---
URINE SENT TO THE LAB
[2023-04-17 20:20] LABS: BASOPHILS % (AUTO) 0.6 % (0.0-2.0); HEMATOCRIT 38.9 % (36-48); HEMOGLOBIN 13.1 g/dL (12.0-16.0); LYMPHOCYTES # (AUTO) 1.1 K/uL (2.5-16.5); LYMPHOCYTES % (AUTO) 18.5 % (20.5-51.1); MEAN CORPUSCULAR HEMOGLOBIN 30 pg (27-31); MEAN CORPUSCULAR HGB CONC 34 g/dL (33-37); MONOCYTES # (AUTO) 0.4 K/uL (0.8-1.0); MONOCYTES % (AUTO) 7.2 % (1.7-9.3); NEUTROPHILS # (AUTO) 4.3 K/uL (1.8-7.7); NEUTROPHILS % (AUTO) 73.7 % (42.2-75.2); PLATELET COUNT (AUTO) 215 K/uL (140-450); RED BLOOD CELL COUNT(AUTO) 4.37 MIL/uL (4.20-5.40); RED CELL DISTRIBUTION WIDTH 12.6 % (11.6-13.7); WHITE BLOOD COUNT (AUTO) 5.8 K/uL (4.8-10.8)
[2023-04-17 20:44] LABS: ALBUMIN 3.5 g/dL (3.4-5.0); ANION GAP 17.1 (8-16); ASPARTATE AMINOTRANSFERASE 20 U/L (15-37); CARBON DIOXIDE 23.7 mmol/L (21-32); CHLORIDE 102 mmol/L (98-107); CREATININE 0.8 mg/dL (0.6-1.3); GLUCOSE 89 mg/dL (74-106); LIPASE 77 U/L (73-393); POTASSIUM 3.8 mmol/L (3.5-5.1); SODIUM SERUM 139 mmol/L (136-145); TOTAL BILIRUBIN 0.7 mg/dL (0.0-1.0); UREA NITROGEN, BLOOD 29 mg/dL (7-18)
[2023-04-17 20:46] LABS: APPEARANCE,URINE CLEAR (CLEAR); BILIRUBIN,URINE 2+ (NEGATIVE); BLOOD, URINE TRACE-I (NEGATIVE); COLOR,URINE YELLOW (YELLOW); LEUKOCYTE ESTERASE ,URINE NEGATIVE (NEGATIVE); NITRITE, URINE NEGATIVE (NEGATIVE); UGLUCOSE NEGATIVE (NEGATIVE)
[2023-04-17 20:57] LABS: YEAST,URINE Many /HPF (None Seen)
[2023-04-17 20:58] LABS: OTHER CASTS, URINE EPITHELIAL CASTS 1+ /LPF (None Seen)
[2023-04-17] MEDS ORDERED: MONT-72 PO (22:50)
[2023-04-17] MEDS ORDERED: CARV12.52 PO (22:50)
[2023-04-17] MEDS ORDERED: IMI50 PO (22:50)
[2023-04-17] MEDS ORDERED: ONDA-188 PO (23:37)
[2023-04-17] MEDS ORDERED: LACTATED RINGERS 1,000 ML IV ONE (23:40)
[2023-04-18 00:30] VITALS: BP 174/79; PULSE 72; RESP 17; TEMP 98; O2SAT 98
--- NOTE | 2023-04-18 02:18 | NUR ---
Patient discharged with v/s stable. Written and verbal after care instructions given and explained. Patient alert, oriented and verbalized understanding of instructions. Ambulatory with steady gait. All questions addressed prior to discharge. ID band removed. Patient advised to follow up with PMD. Rx of zofrn given. Patient educated on indication of medication including possible reaction and side effects. Opportunity to ask questions provided and answered.
== END 2023-04-18 00:30 | disposition home or self-care (01) ==
LOC: MED 18:30
DX: R11.2 Nausea with vomiting, unspecified (principal); E86.0 Dehydration; R82.4 Acetonuria; R10.13 Epigastric pain; I11.0 Hypertensive heart disease with heart failure; Z86.73 Personal history of transient ischemic attack (TIA), and cerebral infarction without residual deficits; Z91.040 Latex allergy status; Z79.899 Other long term (current) drug therapy
CPT/HCPCS: 36415; 74176; 80053; 81001; 83690; 84484; 85025; 96361; 96365; 99285; J2405

== ENCOUNTER 2023-05-06 15:49 | Emergency (ER) | payer OTHER, BC ==
[~2023-05-06] VITALS: Ht 152.4 cm; Wt 63.5 kg
[~2023-05-06 15:49] MED LIST changes: -ACET-8905 PO; -ASPI81CT95 PO; -ATEN25TA7 PO; -ATOR20TA40 PO; +CARV12.52 PO; -ENAL10TA99 PO; -HYDR25TA32 PO; -IBUP-2213 PO; +IMI50 PO; +MONT-72 PO; -NIFE30TE5 PO; -ONDA8TAB87 PO; -POTA10TA70 PO; -SERT50TA PO; -[UNRECOGNIZED DRUG - CODE] PO
[2023-05-06 16:07] VITALS: BP 168/86; PULSE 77; RESP 20; TEMP 98; O2SAT 99
[2023-05-06] MEDS ORDERED: NACL 0.9% 500 ML IV ONE (16:40)
[2023-05-06 17:04] VITALS: TEMP 98
[2023-05-06 17:07] VITALS: O2SAT 99
[2023-05-06 17:08] LABS: BASOPHILS # (AUTO) 0.1 K/uL (0.00-0.22); EOSINOPHILS # (AUTO) 0.1 K/uL (0-0.4); EOSINOPHILS % (AUTO) 1.7 % (0.0-4.0); HEMATOCRIT 37.7 % (36-48); HEMOGLOBIN 12.7 g/dL (12.0-16.0); LYMPHOCYTES # (AUTO) 1.8 K/uL (2.5-16.5); LYMPHOCYTES % (AUTO) 30.5 % (20.5-51.1); MEAN CORPUSCULAR HEMOGLOBIN 30 pg (27-31); MEAN CORPUSCULAR HGB CONC 34 g/dL (33-37); MONOCYTES # (AUTO) 0.4 K/uL (0.8-1.0); MONOCYTES % (AUTO) 7.4 % (1.7-9.3); NEUTROPHILS # (AUTO) 3.6 K/uL (1.8-7.7); NEUTROPHILS % (AUTO) 59.4 % (42.2-75.2); PLATELET COUNT (AUTO) 188 K/uL (140-450); RED BLOOD CELL COUNT(AUTO) 4.19 MIL/uL (4.20-5.40); RED CELL DISTRIBUTION WIDTH 13.8 % (11.6-13.7); WHITE BLOOD COUNT (AUTO) 6.1 K/uL (4.8-10.8)
[2023-05-06 17:11] LABS: APPEARANCE,URINE SL CLOUDY (CLEAR); BILIRUBIN,URINE 1+ (NEGATIVE); BLOOD, URINE NEGATIVE (NEGATIVE); COLOR,URINE YELLOW (YELLOW); LEUKOCYTE ESTERASE ,URINE NEGATIVE (NEGATIVE); NITRITE, URINE NEGATIVE (NEGATIVE); UGLUCOSE NEGATIVE (NEGATIVE)
--- NOTE | 2023-05-06 17:20 | NUR ---
82 Y/O F PATIENT PRESENTS TO ED WITH HISTORY OF HTN AND PREVIOUS STROKES. PT STATES SHES HAD A 3 DAY HISTORY OF GRADUAL ONSET OF PAIN OF A CRUSHING HEADACHE. PT HAS HAD NAUSEA AND DENIES V/D; PT HAD SYSTOLIC 180 SKIN IS PINK/WARM/DRY; AAOX4 WITH EVEN AND STEADY GAIT; LUNGS CLEAR BL; HR EVEN AND REGULAR; PT DENIES ANY FEVER, CP, SOB, OR COUGH AT THIS TIME; PATIENT STATES PAIN OF 10/10 AT THIS TIME; UPON ASSESMENT PTS VITALS ARE 181/74; PATIENT POSITIONED FOR COMFORT; HOB ELEVATED; BEDRAILS UP X2; CALL LIGHT WITH IN REACH,BED DOWN. ER MD MADE AWARE OF PT STATUS. PMHX STROKE HTN CARDIAC DISORDERS CEREBRAL VASCULAR ACCIDENT SEIZURES ALLERGIES IODINE
[2023-05-06] MEDS ORDERED: PROCHLORPERAZINE 10 MG/2 ML VIAL IVP ONE (17:35)
[2023-05-06] MEDS ORDERED: MORPHINE SULFATE 4 MG/ML SYR IVP ONE (17:35)
[2023-05-06] MEDS ORDERED: diphenhydrAMINE 50 MG/ML VIAL IVP ONE (17:35)
--- NOTE | 2023-05-06 17:45 | NUR ---
PT HAS BEEN MEDICATED PER PROVIDERS ORDERS.
--- NOTE | 2023-05-06 19:15 | NUR ---
RELEASED CARE TO ANGEL MALHOTRA. REPORT GIVEN.
[2023-05-06 19:16] LABS: ALBUMIN 3.1 g/dL (3.4-5.0); ANION GAP 14.7 (8-16); ASPARTATE AMINOTRANSFERASE 34 U/L (15-37); CARBON DIOXIDE 26.2 mmol/L (21-32); CHLORIDE 107 mmol/L (98-107); CREATININE 0.7 mg/dL (0.6-1.3); GLUCOSE 77 mg/dL (74-106); LIPASE 98 U/L (73-393); SODIUM SERUM 144 mmol/L (136-145); TOTAL BILIRUBIN 0.6 mg/dL (0.0-1.0); UREA NITROGEN, BLOOD 11 mg/dL (7-18)
[2023-05-06 19:30] LABS: POTASSIUM 3.9 mmol/L (3.5-5.1)
[2023-05-06 20:11] VITALS: BP 171/78; PULSE 81; RESP 18; O2SAT 94
--- NOTE | 2023-05-06 20:11 | NUR ---
Patient discharged with v/s stable. Written and verbal after care instructions given and explained. Patient verbalized understanding. Ambulatory with steady gait. All questions addressed prior to discharge. Advised to follow up with PMD.
== END 2023-05-06 20:11 | disposition home or self-care (01) ==
LOC: MED 15:49
DX: G43.909 Migraine, unspecified, not intractable, without status migrainosus (principal); Z86.73 Personal history of transient ischemic attack (TIA), and cerebral infarction without residual deficits
CPT/HCPCS: 36415; 70450; 71045; 74176; 80053; 81003; 83690; 84484; 85025; 96374; 96375; 99285; J0780; J1200; J2270; Q0092; J7030